=== PATIENT | female | born 1950 | race Caucasian/White ===

== ENCOUNTER 2016-10-26 12:32 | Inpatient (IN) | payer MEDICARE, BC ==
[2016-10-26] VITALS (406 sets, daily range): BP systolic 126–139; BP diastolic 80–88; PULSE 69–74; TEMP 97.7–97.9; O2SAT 88–97
[~2016-10-26] VITALS: Ht 167.6 cm; Wt 66.0 kg
[~2016-10-26 12:32] MED LIST: LIPITOR20 MG PO; LOPRESSOR 225 MG/TAB PO; LOPRESSOR 550 MG/TAB PO; PLAVIX 75MG TAB75 MG PO
[2016-10-26] MEDS ORDERED: ASPIRIN 32325 MG/TAB PO (12:47)
[2016-10-26 13:08] LABS: BASO # 0.1 (0.0-0.2); BASO % 0.7 % (0.0-2.0); EOS # 0.5 (0.0-0.7); EOS % 4.3 % (0-4.0); GRAN # 7.7 (1.4-6.5); GRAN % 64.5 % (42.2-75.2); HEMATOCRIT 53.2 % (37.0-47.0); HEMOGLOBIN 17.4 g/dl (12.5-16.0); LYMPH # 2.8 (1.2-3.4); LYMPH % 23.2 % (20.0-51.0); MEAN CELL VOLUME 97 fl (80.0-100.0); MEAN CORPUSCULAR HEMOGLOBIN 32 pg (27.0-31.0); MEAN CORPUSCULAR HGB CONC 33 g/dl (33.0-37.0); MEAN PLATELET VOLUME 10.6 fl (7.4-10.4); MONO # 0.8 (0.1-0.6); PLATELET COUNT 271 K/mm3 (130-400); RED BLOOD COUNT 5.49 M/mm3 (4.10-5.30); REDCELL DISTRIBUTION WIDTH-CV 15.9 % (11.5-14.5)
[2016-10-26 13:15] LABS: ADJUSTED CALCIUM 10.1 mg/dL (8.4-10.2); ALANINE AMINOTRANSFERASE 35 U/L (9-52); ALBUMIN 4.5 gm/dL (3.5-5.0); ALKALINE PHOSPHATASE 122 U/L (50-136); ANION GAP 12 mmol/L (7-16); BILIRUBIN,TOTAL 0.9 mg/dL (0.0-1.0); BLOOD UREA NITROGEN 21 mg/dL (7-17); CALCIUM 10.5 mg/dL (8.4-10.2); CARBON DIOXIDE 27 mmol/L (22-30); CHLORIDE 102 mmol/L (98-107); CREATININE, serum 0.93 mg/dL (0.52-1.25); GLUCOSE 106 mg/dL (74-106); POTASSIUM 4.4 mmol/L (3.4-5.0); SODIUM 142 mmol/L (137-145); TOTAL PROTEIN 8.4 gm/dL (6.4-8.2)
[2016-10-26 13:19] LABS: PARTIAL THROMBOPLASTIN TIME 34.5 SECONDS (26.0-37.0)
[2016-10-26 13:35] LABS: TROPONIN-I < 0.012 ng/mL (0.000-0.034)
[2016-10-27] VITALS (555 sets, daily range): BP systolic 92–141; BP diastolic 56–97; PULSE 65–90; TEMP 98–98.6; O2SAT 88–96
[2016-10-27 06:12] LABS: CALCIUM 9.8 mg/dL (8.4-10.2); CREATININE, serum 0.95 mg/dL (0.52-1.25); POTASSIUM 3.8 mmol/L (3.4-5.0)
[2016-10-27 06:16] LABS: BASO % 0.4 % (0.0-2.0); EOS # 0.4 (0.0-0.7); GRAN # 6.6 (1.4-6.5); GRAN % 65.1 % (42.2-75.2); HEMATOCRIT 47.1 % (37.0-47.0); LYMPH # 2.4 (1.2-3.4); LYMPH % 23.7 % (20.0-51.0); MEAN CELL VOLUME 98 fl (80.0-100.0); MEAN CORPUSCULAR HEMOGLOBIN 32 pg (27.0-31.0); MEAN CORPUSCULAR HGB CONC 33 g/dl (33.0-37.0); MEAN PLATELET VOLUME 10.9 fl (7.4-10.4); MONO # 0.7 (0.1-0.6); MONO % 6.6 % (1.7-9.3); PLATELET COUNT 211 K/mm3 (130-400); RED BLOOD COUNT 4.81 M/mm3 (4.10-5.30); WHITE BLOOD COUNT 10.1 K/mm3 (4.8-10.8)
[2016-10-27 06:18] LABS: HEMOGLOBIN 15.3 g/dl (12.5-16.0)
[2016-10-27] MEDS ORDERED: LOPRESSOR 550 MG/TAB PO (07:54)
[2016-10-27] MEDS ORDERED: PRINIVIL20 MG PO (12:56)
== END 2016-10-27 14:20 | disposition home or self-care (01) | DRG 305 ==
LOC: COL.ER 12:32 → IMCU 14:46
PROVIDERS: Emergency Medicine; Family Medicine
DX: I16.0 Hypertensive urgency (principal); D75.1 Secondary polycythemia; F17.210 Nicotine dependence, cigarettes, uncomplicated; Z86.73 Personal history of transient ischemic attack (TIA), and cerebral infarction without residual deficits
CPT/HCPCS: 99223-AI; 99238; A9585; J2405; J2550; J7030; J7050

== ENCOUNTER → 2021-06-17 | Outpatient (CLI) | payer MEDICARE, BC ==
[~2021-06-17] MED LIST changes: +ASPIRIN 32325 MG/TAB PO; +PRINIVIL20 MG PO
== END ==
LOC: MC.RAD 09:53
DX: N63.11 Unspecified lump in the right breast, upper outer quadrant (principal)

== ENCOUNTER → 2021-07-06 | Outpatient (CLI) | payer MEDICARE, BC | LOC: MC.RAD 09:44 | DX: R92.8 Other abnormal and inconclusive findings on diagnostic imaging of breast (principal) ==